=== PATIENT | male | born 1985 ===

== ENCOUNTER 2021-01-22 19:12 | Emergency (ER) | payer SELFPAY ==
[~2021-01-22] VITALS: Ht 177.8 cm; Wt 86.4 kg
[2021-01-22 19:15] VITALS: BP 132/84
[2021-01-22] MEDS ORDERED: INDO-16 PO (19:27)
[2021-01-22] MEDS ORDERED: KETOROLAC TROMETHAMINE 30 MG/ML VIAL IM ONE (20:15)
== END 2021-01-22 20:43 | disposition home or self-care (01) ==
LOC: EMS 19:14
DX: M10.9 Gout, unspecified (principal); F17.210 Nicotine dependence, cigarettes, uncomplicated; Z79.899 Other long term (current) drug therapy
CPT/HCPCS: 96372; 99283; J1885